=== PATIENT | female | born 1990 | race Hispanic/Latino ===

== ENCOUNTER → 2021-03-04 10:39 | Outpatient (CLI) | payer OTHER, SELFPAY ==
--- NOTE | 2021-03-04 10:41 | DI.US.S_ITS ---
PROCEDURE: US OB <= 14 WEEKS FETUS INDICATIONS: INITIAL VIABILITY AND DATING. OUTSIDE/PRIOR DATING DATA: Last menstrual period (LMP): 01/06/2021. LMP-based estimated date of delivery (RADHA): 10/13/2021. First dating scan (date and location): 03/04/2021, [facility]. Estimated date of delivery (RADHA) from first dating scan: 10/10/2021. TECHNIQUE: Real-time scanning was performed of the fetus and maternal pelvic organs, with image documentation. Endovaginal scanning was also performed to better visualize the fetus and maternal ovaries. COMPARISON: None. FINDINGS: Embryo: [place] rump length 2 cm, 8 weeks 4 days Heart rate: 163 Measurement variability in dating: +/- 4 weeks by LMP, +/- 7 days by mean sac diameter (use before 6 weeks gestation if crown-rump length not able to be measured), +/- 5 days by crown-rump length (up to 8 weeks 6 days gestation), +/- 7 days by crown-rump length (up to 13 weeks 6 days gestation). Maternal organs: Ovaries unremarkable. Right ovarian corpus luteum . IMPRESSION: 1. Living 1st trimester intrauterine with crown-rump length and heartbeat measuring 8 weeks 4 days. Dictated by: Barry Pisano M.D. on 03/04/2021 at 12:19 Approved by: Barry Pisano M.D. on 03/04/2021 at 12:20
== END ==
PROVIDERS: Referring Provider Family Medicine; Visit Provider Family Medicine
DX: Z34.81 Encounter for supervision of other normal pregnancy, first trimester (principal)
CPT/HCPCS: 76801; 76817

== ENCOUNTER → 2021-03-23 13:08 | Outpatient (CLI) | payer OTHER, SELFPAY ==
[2021-03-23 13:52] LABS: Add Manual Diff / Slide Review NO; Basophils Absolute Auto 0 /uL (0-100); Basophils Percent Auto 0.2 % (0-2); Eosinophils Absolute Auto 100 /uL (0-450); Eosinophils Percent Auto 1.3 % (2-4); Hematocrit 41.1 % (36-46); Hemoglobin 14.3 g/dL (12.0-16.0); Lymphocytes Absolute Auto 1900 /uL (1100-4500); Lymphocytes Percent Auto 25.1 % (25-40); Mean Corpuscular HGB Conc 34.7 % (30-36); Mean Corpuscular Hemoglobin 31.3 PG (26-34); Mean Corpuscular Volume 90.3 fL (80-100); Monocytes Absolute Auto 300 /uL (0-900); Monocytes Percent Auto 3.5 % (3-14); Neutrophils Absolute Auto 5200 /uL (1500-7000); Neutrophils Percent Auto 69.9 % (50-75); Platelet Count 213 X10^3/uL (150-400); Red Blood Cell Count 4.55 X10^6/uL (4.0-5.2); Red Cell Distribution Width 13.1 % (11.6-14.8); White Blood Cell Count 7.4 X10^3/uL (4.5-11.0)
[2021-03-23 14:01] LABS: Appearance Urine UA CLEAR; Bilirubin Urine UA NEGATIVE (NEGATIVE); Color Urine UA YELLOW; Glucose Urine UA NEGATIVE (Negative); Ketones Urine UA NEGATIVE (NEGATIVE); Leukocyte Esterase Urine UA NEGATIVE (NEGATIVE); Nitrite Urine UA NEGATIVE (Negative); Occult Blood Urine UA NEGATIVE (Negative); Protein Urine UA NEGATIVE (Negative); Specific Gravity Urine UA 1.025 (1.000-1.035); Urobilinogen Urine UA 0.2 E.U./dL (0.2)
[2021-03-24 07:08] LABS: Varicella IgG Antibody 428 index (Immune >165)
[2021-03-24 18:05] LABS: Hepatitis B Surface Antigen NEGATIVE s/c (NEGATIVE); Rubella Antibody IgG 28.2 IU/mL (>15)
[2021-03-24 18:22] LABS: HIV 1 & 2 Ab/Ag 4th Gen Combo NEGATIVE (NEGATIVE); Hep C Virus Ab w/Reflex Quant NEGATIVE s/c (NEGATIVE)
[2021-03-25 06:54] LABS: RPR Screen Non Reactive (Non Reactive)
== END ==
PROVIDERS: Referring Provider Family Medicine; Visit Provider Family Medicine
DX: Z34.81 Encounter for supervision of other normal pregnancy, first trimester (principal)
CPT/HCPCS: 36415; 80055; 81003; 86787; 86803; 86850; 86900; 86901; 87086; 87389

== ENCOUNTER → 2021-05-20 10:12 | Outpatient (CLI) | payer OTHER, SELFPAY ==
[2021-05-26 22:06] LABS: AFP, Serum 60.2 ng/mL (.); Calc Gestational Age EDD (.); Estriol, Free 1.45 ng/mL (.); Inhibin A, Dimeric 210.82 pg/mL (.); Inhibin A, MoM 1.56 (.); Maternal Ethnicity Other (.); Maternal Weight 220 lbs (.); Number of Fetuses No (.); OSBR Risk 1 IN 2734 (.); Results Report (.); Test Results *Screen Negative* (.); hCG, MoM 1.55 (.); hCG, Serum 31928 mIU/mL (.)
== END ==
PROVIDERS: Referring Provider Family Medicine; Visit Provider Family Medicine
DX: Z34.92 Encounter for supervision of normal pregnancy, unspecified, second trimester (principal); Z3A.19 19 weeks gestation of pregnancy
CPT/HCPCS: 36415; 82105; 82677; 84702; 86336

== ENCOUNTER → 2021-05-28 10:40 | Outpatient (CLI) | payer OTHER, SELFPAY ==
--- NOTE | 2021-05-28 10:42 | DI.US.S_ITS ---
PROCEDURE: US OB >= 14 WEEKS FETUS INDICATIONS: anatomy screening OUTSIDE/PRIOR DATING DATA: Last menstrual period (LMP): 01/06/2021 LMP-based estimated date of delivery (RADHA): 10/13/2021. First dating scan (date and location): 03/04/2021. Estimated date of delivery (RADHA) from first dating scan: 10/10/2021. The calculations are made using the ultrasound RADHA of 10/10/2021. TECHNIQUE: Real-time scanning was performed of the fetus, with image documentation and biometric measurements. COMPARISON: [facility], , OB <= 14 WEEKS FETUS, 03/04/2021, 11:18. FINDINGS: General: A single living intrauterine gestation is present. Presentation: Variable. Placenta: Placental position is anterior , without previa. Amniotic fluid index: 11.9 cm, normal range is 5-24 cm. heart rate: 143 beats per minute. Maternal cervical canal: 4.1 cm long. Normal lower limit is 2.5 cm. biometrics: Biparietal diameter: 20 weeks 4 days Head circumference: 20 weeks 4 days Abdominal circumference: 20 weeks 5 days Femur length: 21 weeks Composite gestational age from present scan: 20 weeks 5 days Estimated weight and percentile: 377 g; 49th percentile Anatomic survey: Neuro: Ventricles are non-dilated at less than 10 mm. Cisterna magna is normal at 3-11 mm. Cerebellum is normal in size and morphology. Nuchal skin fold: Normal at less than 6 mm between 14-21 weeks gestational age. Face: Suboptimally visualized. Spine: No evidence for spina bifida. Heart: 4-chambered heart is present, with normal ventricular outflow tracts. Left ventricular intracardiac focus. Diaphragm: Suboptimally visualized. Stomach: Left-sided stomach is present. Kidneys: Suboptimally visualized. Cord: 3-vessel cord has orthotopic insertion. Bladder: Normal in size. Extremities: All 4 extremities identified. IMPRESSION: 1. Normal interval growth. 2. Echogenic intracardiac focus: 1.4-1.8 fold likelihood of Down syndrome. If isolated finding, consider aneuploidy screening with cell-free DNA. If aneuploidy screen is negative, no further evaluation needed. Anatomic survey otherwise is limited and follow-up is recommended. We strive to produce accurate, complete, and clear reports of imaging services. To assist us in improving patient care, this report was composed using standard report templates and voice recognition software. Therefore, it may contain abnormal punctuation, insertions and/or omissions. Occasional wrong-word or sound-alike substitutions may occur. Though we review the report and make efforts to correct it, we do recommend that the report be read carefully in proper context to recognize any text inaccuracies. Dictated by: Terry MILLER Interpreted: Reji Rider MD on 05/28/2021 at 16:06 Transcribed by: ALBERTO on 05/28/2021 at 16:09 Approved by: Reji Rider M.D. on 05/28/2021 at 17:25
== END ==
PROVIDERS: PCP Family Medicine; Referring Provider Family Medicine; Visit Provider Family Medicine
DX: Z36.89 Encounter for other specified antenatal screening (principal); Z3A.20 20 weeks gestation of pregnancy
CPT/HCPCS: 76811

== ENCOUNTER → 2021-08-12 10:07 | Outpatient (CLI) | payer OTHER, SELFPAY ==
[2021-08-12 11:51] LABS: Hematocrit 34.2 % (36-46); Hemoglobin 11.7 g/dL (12.0-16.0)
[2021-08-12 12:17] LABS: GTT (PREG) 1 Hour PP 50gm Dose 128 mg/dL (76-139)
== END ==
PROVIDERS: PCP Family Medicine; Referring Provider Family Medicine; Visit Provider Family Medicine
DX: Z34.92 Encounter for supervision of normal pregnancy, unspecified, second trimester (principal); Z3A.27 27 weeks gestation of pregnancy
CPT/HCPCS: 36415; 82950; 85014; 85018

== ENCOUNTER → 2021-09-23 10:13 | Outpatient (CLI) | payer OTHER, SELFPAY ==
[2021-09-24 07:49] LABS: Strep Grp B PCR NEG for Grp B Strep
== END ==
PROVIDERS: PCP Family Medicine; Visit Provider Family Medicine
DX: Z34.93 Encounter for supervision of normal pregnancy, unspecified, third trimester (principal); Z3A.37 37 weeks gestation of pregnancy
CPT/HCPCS: 87653

== ENCOUNTER 2021-09-23 15:51 | Outpatient (CLI) | payer OTHER, SELFPAY ==
--- NOTE | 2021-09-23 17:24 | P.TNLD_ITS ---
Visit Information Visit Information Date of evaluation: 09/23/21 Primary OB Provider: Slime Barrios Reason for Evaluation: Yes non-stress test Comments/Additional reasons for admission: 30-year-old at 37 weeks and 1 day here for NST due to borderline low fluid. She had an ultrasound done yesterday which was significant for TIMOTHY of 7. Denies leaking or bleeding and reports good movement. No bleeding. Vital Signs Vital Signs: Temperature 36.5? blood pressure 123/62 heart rate 77 PFSH Medical History Asthma (~2016) Family History Mother Diabetes mellitus Hypertension Father Family history unknown Grandmother Family history unknown Grandfather Family history unknown Grandmother Family history unknown Grandfather Family history unknown Social History marital status: number of children: 2 household members: spouse and children lives independently: Yes caregiver/support person: No housing: house pets and animals: No education level: college (BA, hospitality mgmt. ) occupational status: unemployed [facility] current occupational exposures/hazards: No angelina/yarsanism: Episcopal special angelina needs: No seatbelt use: always do you feel safe at home: Yes Smoking Status: Never smoker second hand exposure: No alcohol intake: former (Pre-: Socially, a few times a month.) substance use type: does not use during the past year weight has: remained stable well-balanced diet: about half the time daily servings fruits/ve-4 caffeine: No (Soda, very occasional. ) Type(s) of exercise: running frequency: 3-4 times per week (x 40-45 min) duration: 30-45 minutes/day Evaluation Evaluation Baseline heart rate: 140 Variability: Moderate (11-25) monitor accelerations: Present Monitor Decelerations: Absent Category of Tracing: Reactive Diagnosis, Plan/Disposition Final Diagnosis (1) 37 weeks gestation of : Status: Acute Plan/Disposition Plan: 30-year-old at 37 weeks and 1 day gestation with borderline low fluid. NST reactive. Follow-up in 1 week for OB check, NST and TIMOTHY or sooner if needed. OB Disposition: home
== END 2021-09-23 17:30 | disposition home or self-care (01) ==
LOC: OB 09-28 07:42
PROVIDERS: PCP Family Medicine; Referring Provider Family Medicine; Visit Provider Family Medicine
DX: O41.03X0 Oligohydramnios, third trimester, not applicable or unspecified (principal); Z3A.37 37 weeks gestation of pregnancy
CPT/HCPCS: 59025; 87653; G0378; G0379

== ENCOUNTER 2021-09-30 12:00 | Outpatient (CLI) | payer OTHER, SELFPAY ==
--- NOTE | 2021-09-30 12:29 | DI.US.S_ITS ---
PROCEDURE: US OB LIMITED INDICATIONS: TIMOTHY OUTSIDE/PRIOR DATING DATA: Last menstrual period (LMP): 01/06/2021. LMP-based estimated date of delivery (RADHA): 10/13/2021. First dating scan (date and location): 03/04/2021. Estimated date of delivery (RADHA) from first dating scan: 10/10/2021. TECHNIQUE: Real-time scanning was performed of the fetus, with image documentation. Endovaginal scanning: Not performed COMPARISON: None. FINDINGS: A single living intrauterine gestation is present. Presentation: Cephalic. Placenta: Placental position is anterior, without previa. Amniotic fluid index: 7.4 cm, normal range is 5-24 cm. heart rate: 140 beats per minute. Maternal cervical canal: Not visualized Clinically estimated gestational age: 38 week 4 day Visualized anatomy within appropriate limits IMPRESSION: Single live intrauterine consistent with a 38 week 4 day gestation Amniotic fluid index 7.4 cm Approved by: Alfonzo Smith M.D. on 09/30/2021 at 14:10
--- NOTE | 2021-09-30 13:16 | P.TNLD_ITS ---
Visit Information Visit Information Date of evaluation: 09/30/21 Primary OB Provider: Slime Barrios Reason for Evaluation: Yes non-stress test non-stress test reason: other (Borderline amniotic fluid) [facility] Medical History Asthma (~2016) Family History Mother Diabetes mellitus Hypertension Father Family history unknown Grandmother Family history unknown Grandfather Family history unknown Grandmother Family history unknown Grandfather Family history unknown Social History marital status: number of children: 2 household members: spouse and children lives independently: Yes caregiver/support person: No housing: house pets and animals: No education level: college (BA, hospitality mgmt. ) occupational status: unemployed ([facility] current occupational exposures/hazards: No angelina/pentecostalism: [employer] special angelina needs: No seatbelt use: always do you feel safe at home: Yes Smoking Status: Never smoker second hand exposure: No alcohol intake: former (Pre-: Socially, a few times a month.) substance use type: does not use during the past year weight has: remained stable well-balanced diet: about half the time daily servings fruits/ve-4 caffeine: No (Soda, very occasional. ) Type(s) of exercise: running frequency: 3-4 times per week (x 40-45 min) duration: 30-45 minutes/day Evaluation Evaluation Baseline heart rate: 140 Variability: Moderate (11-25) monitor accelerations: Present Monitor Decelerations: Absent Category of Tracing: Reactive Diagnosis, Plan/Disposition Final Diagnosis (1) 38 weeks gestation of : Status: Acute Plan/Disposition Plan: 30-year-old at 38 weeks and 1 day gestation with borderline low fluid, stable from last week with TIMOTHY of 7.4. NST reactive.? Follow-up in 1 week for induction or sooner if needed. OB Disposition: home
== END 2021-09-30 13:30 | disposition home or self-care (01) ==
LOC: LABOR 12:17 → OB 10-05 07:30
PROVIDERS: PCP Family Medicine; Referring Provider Family Medicine; Visit Provider Family Medicine
DX: O41.03X0 Oligohydramnios, third trimester, not applicable or unspecified (principal); Z3A.38 38 weeks gestation of pregnancy
CPT/HCPCS: 59025; 76815; G0378; G0379

== ENCOUNTER 2021-10-07 10:59 | Outpatient (CLI) | payer OTHER, SELFPAY ==
--- NOTE | 2021-10-07 11:20 | DI.US.S_ITS ---
PROCEDURE: US OB LIMITED INDICATIONS: TIMOTHY OUTSIDE/PRIOR DATING DATA: Last menstrual period (LMP): 01/06/2021 LMP-based estimated date of delivery (RADHA): 10/13/2021 First dating scan (date and location): 03/04/2021 Estimated date of delivery (RAHDA) from first dating scan: 10/10/2021 The calculations are made using the study derived RADHA of 10/10/2021 TECHNIQUE: Real-time scanning was performed of the fetus, with image documentation. Endovaginal scanning: Not indicated COMPARISON: [facility], US OB LIMITED, 09/30/2021, 12:53. FINDINGS: A single living intrauterine gestation is present. Presentation: Vertex. Placenta: Placental position is anterior, without previa. Amniotic fluid index: 12.4 cm, normal range is 5-24 cm. Single deepest vertical pocket is 4.4 cm. heart rate: 145 beats per minute. Maternal cervical canal: Not evaluated. Estimated gestational age from initial scan: 39 weeks, 4 days IMPRESSION: Single live intrauterine gestation with fetus in vertex presentation. heart rate is 145 beats per minute. Normal amount of amniotic fluid with TIMOTHY measures 12.4 cm. Dictated by: Reji Rider M.D. on 10/07/2021 at 12:30 Approved by: Reji Rider M.D. on 10/07/2021 at 12:32
--- NOTE | 2021-10-07 11:30 | P.TNLD_ITS ---
Visit Information Visit Information Date of evaluation: 10/07/21 Primary OB Provider: Slime Barrios On-call OB Provider: Mary Anne Love Reason for Evaluation: Yes non-stress test non-stress test reason: other (borderline low fluid) Vital Signs Vital Signs: Temperature 35.9? blood pressure 106/61 heart rate 80 PFSH Medical History Asthma (~2016) Family History Mother Diabetes mellitus Hypertension Father Family history unknown Grandmother Family history unknown Grandfather Family history unknown Grandmother Family history unknown Grandfather Family history unknown Social History marital status: number of children: 2 household members: spouse and children lives independently: Yes caregiver/support person: No housing: house pets and animals: No education level: college (BA, hospitality mgmt. ) occupational status: unemployed ([facility] current occupational exposures/hazards: No angelina/protestant: Adventist special angelina needs: No seatbelt use: always do you feel safe at home: Yes Smoking Status: Never smoker second hand exposure: No alcohol intake: former (Pre-: Socially, a few times a month.) substance use type: does not use during the past year weight has: remained stable well-balanced diet: about half the time daily servings fruits/ve-4 caffeine: No (Soda, very occasional. ) Type(s) of exercise: running frequency: 3-4 times per week (x 40-45 min) duration: 30-45 minutes/day Evaluation Evaluation Baseline heart rate: 130 Variability: Moderate (11-25) monitor accelerations: Present Monitor Decelerations: Absent Category of Tracing: Reactive Diagnosis, Plan/Disposition Final Diagnosis (1) 39 weeks gestation of : Status: Acute Plan/Disposition Plan: 30-year-old at 39 weeks and 1 day gestation with previously borderline low fluid now with TIMOTHY of 12. NST reactive.? Induction was bumped to 10/11/21. OB Disposition: home
== END 2021-10-07 12:12 | disposition home or self-care (01) ==
LOC: OB 10-12 06:35
PROVIDERS: PCP Family Medicine; Referring Provider Family Medicine; Visit Provider Family Medicine
DX: O41.03X0 Oligohydramnios, third trimester, not applicable or unspecified (principal); Z3A.39 39 weeks gestation of pregnancy
CPT/HCPCS: 59025; 76815; G0378; G0379

== ENCOUNTER 2021-10-11 19:02 | Inpatient (IN) | payer OTHER, SELFPAY ==
[2021-10-11] MEDS: DINOPROSTONE VAG (CERVIDIL) 10 MG VAG (20:40)
[2021-10-11 21:09] LABS: Add Manual Diff / Slide Review NO; Basophils Absolute Auto 0 /uL (0-100); Basophils Percent Auto 0.3 % (0-2); Eosinophils Absolute Auto 0 /uL (0-450); Eosinophils Percent Auto 0.7 % (2-4); Hematocrit 33.7 % (36-46); Hemoglobin 11.8 g/dL (12.0-16.0); Lymphocytes Absolute Auto 1800 /uL (1100-4500); Lymphocytes Percent Auto 25.1 % (25-40); Mean Corpuscular HGB Conc 35.1 % (30-36); Mean Corpuscular Hemoglobin 31.3 PG (26-34); Mean Corpuscular Volume 89.1 fL (80-100); Monocytes Absolute Auto 300 /uL (0-900); Monocytes Percent Auto 4.1 % (3-14); Neutrophils Absolute Auto 5100 /uL (1500-7000); Neutrophils Percent Auto 69.8 % (50-75); Platelet Count 199 X10^3/uL (150-400); Red Blood Cell Count 3.78 X10^6/uL (4.0-5.2); Red Cell Distribution Width 14.6 % (11.6-14.8); White Blood Cell Count 7.2 X10^3/uL (4.5-11.0)
[2021-10-11] MEDS: ZOLPIDEM 5 MG TABLET PO (21:48)
[2021-10-12 04:12] LABS: COVID19 -Nasal RAPID Negative (Negative)
--- NOTE | 2021-10-12 06:45 | PM.OBHP.IH.1 ---
OB HPI Date/Time Date of admission: 10/11/21 Date Patient Seen: 10/12/21 History of Present Condition Chief complaint: RADHA Calculator Estimated Delivery Date Method Current WG Current Estimate 10/13/21 LMP (Certain) 39w 6d Other Estimates 10/10/21 Ultrasound #1 40w 2d : 4 Para: 2 Narrative: 30-year-old at 39 weeks and 6 days here for elective induction. There had been concerns in the for evolving oligohydramnios however last TIMOTHY was 12. has been uncomplicated. On 20 week ultrasound there was an isolated echogenic intracardiac focus but normal quad screen which was reassuring. Follow-up ultrasound again demonstrated the echogenic intracardiac focus but otherwise normal anatomy. History significant for uterine prolapse with hemorrhage after her first child. No complications with her second delivery. This morning she is feeling her contractions and rates the pain 4/10. Denies leaking or bleeding and reports good movement. Cervidil was placed at approximately 8:40 p.m. last night. care: good care, initiated at week # (10), number of visits (11) and pounds weight gain (49) Dating criteria OB: LMP confirmed by 1st trimester US Ultrasounds: abnormal US findings (Isolated echogenic intracardiac focus in the context of normal quad screen) Obstetrical complications: none Medical complications OB: none Indications Indication for induction OB: other (Childcare) Preadmission Labs Last OB Lab Results: Blood Type A Positive 10/11/21 20:10 10/11/21 Antibody Screen Negative 10/11/21 20:10 10/11/21 Hematocrit 33.7 % (36-46) L 10/11/21 20:10 10/11/21 Hemoglobin 11.8 g/dL (12.0-16.0) L 10/11/21 20:10 10/11/21 Hepatitis B Surface Antigen Negative s/c (NEGATIVE) 03/23/21 13:12 03/23/21 Hepatitis C Antibody Negative s/c (NEGATIVE) 03/23/21 13:12 03/23/21 Rubella Antibody 28.2 IU/mL (>15) 03/23/21 13:12 03/23/21 Varicella-Zoster IgG Antibody 428 index (Immune >165) 03/23/21 13:12 03/23/21 Glucose 1 Hour 128 mg/dL (76-139) 08/12/21 11:40 08/12/21 Group B Streptococcus (PCR) Neg for grp b strep 09/23/21 10:13 09/23/21 -: Chlamydia screen: negative, Gonorrhea screen: negative and Urine: negative -: PAP smear: Normal Genetic Screens: Quad screen: Normal External Labs -: Urine: negative Prior (ies) Past Pregnancies Del. Date GA/Weeks Labor Lgth Wt Sex Route Outcome Anesthesia Place Delv Breastfeed Preg Comp Name 06/12/09 6-7 elective 01/03/14 42 40 9 lb Male vaginal live - full term epidural [place], [place] 2 mos., back to work. post-dates induction [place] 05/22/18 42 6 8 lb 3 oz Male vaginal live - full term epidural [place], [place] 6 wks/back to work. latch prob post-dates induction Tab Delivery Date: 06/12/09 Last Updated by: Lilly Brown R.N. Tried meds, ended up having surgical termination. Delivery Date: 01/03/14 Last Updated by: Lilly Brown R.N. Uterine prolapse at delivery with PPH, controlled bleeding. Evaluation Evaluation Baseline heart rate: 120 Variability: Moderate (11-25) monitor accelerations: Present Monitor Decelerations: Absent Contraction Frequency (minutes): 4 Status: Category l Dilation (cm): 3 Effacement (%): 50 station: -3 Position of cervix: posterior Consistency: soft [facility] Medical History Asthma (~2016) Family History Mother Diabetes mellitus Hypertension Father Family history unknown Grandmother Family history unknown Grandfather Family history unknown Grandmother Family history unknown Grandfather Family history unknown Social History marital status: number of children: 2 household members: spouse and children lives independently: Yes caregiver/support person: No housing: house pets and animals: No education level: college (BA, hospitality mgmt. ) occupational status: unemployed [facility] current occupational exposures/hazards: No angelina/evangelical: Hinduism special angelina needs: No seatbelt use: always do you feel safe at home: Yes Smoking Status: Never smoker second hand exposure: No alcohol intake: former (Pre-: Socially, a few times a month.) substance use type: does not use during the past year weight has: remained stable well-balanced diet: about half the time daily servings fruits/ve-4 caffeine: No (Soda, very occasional. ) Type(s) of exercise: running frequency: 3-4 times per week (x 40-45 min) duration: 30-45 minutes/day Meds Home Medications and Allergies Home Medications Medication Instructions Recorded Confirmed Type ketoconazole 2 % shampoo 1 applic TOPICAL 2XW 03/17/21 10/11/21 History prenat.vits,mary jo,ukq-krhj-dstii 1 tab PO DAILY 03/17/21 10/11/21 History Allergies Allergy/AdvReac Type Severity Reaction Status Date / Time No Known Drug Allergies Allergy Verified 03/17/21 12:18 Review of Systems Review of Systems ROS: Yes All systems reviewed with the patient and are negative except as otherwise documented OB Exam Narrative Exam Narrative: Temperature 98.1? blood pressure 113/68 heart rate 71 HENMT Head: normal to inspection Mouth: oral mucosae normal Eyes General: appearance normal, both eyes and all related structures Resp Effort & Inspection: normal respiratory effort Auscultation: clear to auscultation bilaterally Cardio Rate: regular rate Rhythm: regular rhythm Extremities Lower extremity: Yes normal to inspection; No edema Presentation: vertex Estimated Weight (lbs): 7 Objective Labs Result Diagrams: 10/11/21 20:10 Labs: Laboratory Results - last 24 hr 10/11/21 10/11/21 10/12/21 20:10 20:10 03:41 WBC 7.2 RBC 3.78 L Hgb 11.8 L Hct 33.7 L MCV 89.1 MCH 31.3 MCHC 35.1 RDW 14.6 Plt Count 199 Neut % (Auto) 69.8 Lymph % (Auto) 25.1 Parmer % (Auto) 4.1 Eos % (Auto) 0.7 L Baso % (Auto) 0.3 Neut # (Auto) 5100 Lymph # (Auto) 1800 Parmer # (Auto) 300 Eos # (Auto) 0 Baso # (Auto) 0 SARS-CoV-2 (PCR) Negative Blood Type A Positive Antibody Screen Negative Assessment and Plan Assessment and Plan Assessment and Plan narrative: 30-year-old at 39 weeks and 6 days gestation here for elective induction for childcare reasons. There had been concern for evolving oligohydramnios at the end of her however last TIMOTHY was 12. She received Cervidil last night and is now yelena regularly every 3-4 minutes. Contractions are increasing in intensity as well. She is GBS negative and COVID negative. Plan Begin Pitocin per protocol Epidural upon request Anticipate spontaneous vaginal delivery Prepare for hemorrhage given history of hemorrhage with her first delivery
[2021-10-12] MEDS: LACTATED RINGERS 1,000 ML 100 ML IV ×3 (09:04→17:18)
[2021-10-12] MEDS: OXYTOCIN PREMIX 30 UNIT/500 ML PLAST..BAG IV (09:18)
--- NOTE | 2021-10-12 12:59 | PM.OBPNLAB ---
Date/Time Date Patient Seen: 10/12/21 Time Patient Seen: 12:59 Pain Control Pain control: tolerating well Pelvic Exam Dilation (cm): 4 Effacement (%): 70 station: -2 Amniotic membrane status: Ruptured (AROM clear fluid) Contractions Pitocin rate (mU/min): 12 Contraction frequency (min): 3 Status status: Category l Heart Rate Baseline: 120 Monitor Accelerations: Present Monitor Decelerations: Absent Monitor Variability: Moderate Assessment and Plan Assessment: induction ongoing Plan: continuous present management Comments: 30 year old at 39+6 weeks gestation here for elective induction. Doing well with pitocin. AROM for clear fluid. Continue pitocin. Epidural upon request. Anticipate .
--- NOTE | 2021-10-12 16:59 | PM.OBPNLAB ---
Date/Time Date Patient Seen: 10/12/21 Time Patient Seen: 16:59 Pain Control Pain control: epidural (pain in right low abdomen) Pelvic Exam Dilation (cm): 7 Effacement (%): 100 station: -2 Amniotic membrane status: Ruptured (AROM clear fluid) Contractions Contraction frequency (min): 3 Status status: Category l Heart Rate Baseline: 115 Monitor Accelerations: Present Monitor Decelerations: Early Monitor Variability: Moderate Assessment and Plan Assessment: active labor Plan: continuous present management Comments: Progressing on pitocin after AROM. Recommend peanut ball and frequent turning. Anticipate .
--- NOTE | 2021-10-12 18:12 | PM.OBPRVD ---
Labor & Delivery Delivery date: 10/12/21 Cervical ripening method: per Cervidil protocol Induction method: per pitocin protocol Delivery augmentation: rupture of membranes Delivery monitor: external FHT Route of delivery: L&D Laceration Description: None Estimated blood loss (mL): 400 Anesthesia Type: Epidural Narrative: 30-year-old at 39 weeks and 6 days brought in for elective induction for childcare reasons. STAGE I: Labor Patient was admitted the night of 10/11/21 for cervical ripening. She received Cervidil. Cervidil was removed after 12 hours and she was started on Pitocin. Artificial rupture membranes at 1252 with clear fluid. Active labor began shortly thereafter. She went on to receive an epidural. She was complete at 1746. heart tones were category 1 throughout stage I. STAGE II: Delivery Patient was complete and pushed twice to deliver a vigorous male at 1755. was vertex and MIKE. He was immediately placed on mother's abdomen. Cord was clamped and cut after 1 minute delay. Apgars were 9 and 9. No resuscitation of the required. STAGE III: Placenta/Cord Placenta delivered at 1805 with gentle traction on cord. Placenta appeared intact with a three-vessel cord. Fundus was firm below umbilicus after delivery. There were no lacerations. EBL: 400 mL. Needle and sponge counts were correct. The vagina was inspected and no items were left in situ. Patient was doing well with Efren, her and at bedside. [place] Baby 1: Infant gender: Male Presentation: vertex Position: Left Occiput Anterior Placenta delivery description: Spontaneous Cord Vessel Description: 3 Vessels score (1 min): 8 score (5 min): 9 Plan for aftercare: Routine care
[2021-10-12] MEDS: IBUPROFEN 600 MG TABLET PO (23:27)
[2021-10-12] MEDS: ACETAMINOPHEN 325 MG TABLET 650 MG PO (23:28)
[2021-10-13] MEDS: PRENATAL VIT,CALC/IRON/FOLIC 1 TABLET 1 TAB PO (08:06)
[2021-10-13] MEDS: ACETAMINOPHEN 325 MG TABLET 650 MG PO (08:07)
[2021-10-13] MEDS: IBUPROFEN 600 MG TABLET PO (08:07)
[2021-10-13] MEDS: DOCUSATE 100 MG CAPSULE PO (08:08)
--- NOTE | 2021-10-13 09:00 | P.DS_ITS ---
Discharge Providers Provider Date of admission: 10/11/21 19:02 Discharge Date: 10/13/21 Primary care physician: Slime Brarios DO Consults: 10/13/21 18:15 Consult to Property And Equipment Clerk Routine Comment: Discharge provider: Slime Barrios DO Summary Hospital Course Date Patient Seen: 10/13/21 Time Patient Seen: 09:30 Diagnoses: Spontaneous vaginal delivery 39 weeks of Hospital Course: 30-year-old now 5 after uncomplicated spontaneous vaginal delivery at 39 weeks and 6 days gestation. Patient came in for elective induction. She received Cervidil and Pitocin. She went on to deliver a vigorous male with Apgars of 8 and 9. There were no lacerations. course has been uncomplicated. She is ambulating, voiding and passing flatus. Vaginal bleeding is light and pain controlled with ibuprofen. is going well without issues in the . Advised patient to call for fevers, severe pain or bleeding through more than a pad an hour. Peripartum Data Delivery Method: Natural Vaginal Laceration Description: None [place] 1: Gender: Male Disposition of : home Status at Discharge Cognitive/behavioral status at discharge: at baseline, oriented Functional status at discharge: independent ambulation Overall status at discharge: patient is back to baseline Time Spent with Patient Time attestation: Total time spent providing and/or coordinating discharge services: Time spent: Less than 30 minutes Objective Labs Result Diagrams: 10/11/21 20:10 Exam Vital Signs (past 8 hours): Temperature 97.8? blood pressure 107/69 heart rate 78 respirations 16 Narrative Exam Narrative: General: Awake and alert, no acute distress. HEENT: NCAT, EOMI, moist oral mucosa CV: Regular rate and rhythm, no murmurs, rubs or gallops Lungs: CTAB, no wheezes, rales, or rhonchi Abdomen: Soft, nontender; bowel tones active; uterus firm 1 cm below umbilicus Extremities: Warm, no edema Discharge Plan Discharge Plan Patient Disposition: Home Discharge orders & Medications Prescriptions: New docusate sodium 100 mg Capsule 100 mg PO DAILY Qty: 30 0RF ibuprofen 600 mg Tablet 600 mg PO Q6HR PRN (Reason: Pain, Mild (1-3)) Qty: 30 0RF Continued prenat.vits,mary jo,[id number] Tablet 1 tab PO DAILY 0RF ketoconazole 2 % shampoo 1 applic topical 2XW 0RF Follow up/Referrals: Slime Barrios DO [Primary Care Provider] - 6 Weeks Visit Report/Discharge Packet Visit Report Forms: Patient Portal/API, Stroke Signs & Symptoms Discharge Data Primary Care Provider: Slime Barrios
[2021-10-13 15:14] VITALS: BP 107/69; PULSE 78; RESP 16; TEMP 36.6
== END 2021-10-13 17:31 | disposition home or self-care (01) | DRG 807 ==
PROVIDERS: Admitting Provider Family Medicine; PCP Family Medicine; Referring Provider Family Medicine; Visit Provider Family Medicine
DX: O28.3 Abnormal ultrasonic finding on antenatal screening of mother (principal); Z37.0 Single live birth; Z20.822 Contact with and (suspected) exposure to COVID-19; Z3A.39 39 weeks gestation of pregnancy
CPT/HCPCS: 01967; 59050; 59200; 59400; 85025; 86850; 86900; 86901; 87635; C9803; G0379; J2590